=== PATIENT | female | born 1960 | race Asian ===

== ENCOUNTER 2016-10-08 07:45 | Outpatient (CLI) | payer OTHER ==
--- NOTE | 2016-10-08 13:13 | Cat Scan Report ---
CT NECK, CHEST, ABDOMEN AND PELVIS WITH CONTRAST INDICATION: Colon/sigmoid malignant neoplasm. Hypertension. COMPARISON: 11/28/[address] FINDINGS: Neck, chest, abdomen and pelvis CT performed following oral contrast and intravenous administration of 100 cc of Omnipaque 300. NECK: Leftward nasal septal bowing. Mild bilateral maxillary sinus mucosal thickening. Torus palatinus. Few radiopaque dental material. Preserved parapharyngeal fat pads. Pharynx, hypopharynx and larynx appear within normal limits. Salivary glands, thyroid and airway appear within normal limits. Patent bilateral carotid tree and subclavian arteries, to the extent assessed. Left vertebral artery also appears patent, though the right vertebral artery not seen and may be occluded soon after its origin. Patent right jugular vein. Left mid to distal jugular vein also patent but nonopacified proximally as on axial series 2, images 79-122, though with intraluminal contrast displayed on slightly later images obtained with the chest, suggesting patency. Few superficial veins in the neck anteriorly appear slightly more prominent since the prior exam and measure up to 7 mm caliber as on axial image 100, series 2, amongst others. CHEST: Stable borderline/mild cardiomegaly with slight increased anterior pericardial fluid or thickening inferiorly now measuring up to 0.7 cm, axial image 329, series 2. Few coronary calcifications. Some motion artifact. Grossly unremarkable great vessels. As on axial series 2, images 208-221, stenosis along left brachiocephalic vein in the superior mediastinum not entirely excluded over a 2-2.5 cm segment as on axial image 216, amongst others. It is however patent distally, joining the right to form the SVC. Approximately 3 mm calcified granuloma in the right lower lobe inferiorly may again be present, axial image 262. No focal suspicious lung masses. No ascites or size significant adenopathy. Nonspecific distal esophageal wall thickening, not excluded for gastroesophageal reflux and/or hiatal hernia, amongst others. ABDOMEN: Approximately 5.3 cm right interpolar partly exophytic cortical cyst. Liver, spleen, gallbladder, pancreas, adrenals, nonaneurysmal abdominal aorta, IVC and non-hydronephrotic kidneys otherwise within normal limits. Opacified GI tract nonobstructive. Mild colonic stool/possible constipation. No ascites or size significant adenopathy. PELVIS: Few left hemipelvic phleboliths. Uterus/cervix situated predominantly in the right hemipelvis with grossly unremarkable adnexa/ovaries. Minimal deep right hemipelvic free fluid may be physiologic. Grossly unremarkable non-opacified urinary bladder and the rectosigmoid. Proximal sigmoid anastomotic staple line incidentally noted as also a normal appendix in the midline, anterior to the upper sacrum. No focal aggressive osseous lesions. CONCLUSION: 1. CT findings not excluded for left brachiocephalic vein short segment stenosis in the superior mediastinum, as detailed above. Please correlate. 2. Various other incidental findings without evidence of metastatic disease. Thank you for the opportunity to participate in this patient's care.
== END 2016-10-08 07:46 | disposition home or self-care (01) ==
LOC: SPVIMAG 07:45
PROVIDERS: ATTEND Internal Medicine Hematology & Oncology
DX: C18.7 Malignant neoplasm of sigmoid colon (principal); I10 Essential (primary) hypertension; I87.8 Other specified disorders of veins
CPT/HCPCS: 70491; 71260; 74177; Q9967